=== PATIENT | male | born 1955 | race Two or more races ===

== ENCOUNTER 2017-11-07 13:31 | Observation (INO) | payer OTHER ==
[2017-11-07] MEDS ORDERED: SODIUM CHLORIDE 1,000 ML IV STA (14:09)
[2017-11-07 14:19] LABS: BASO % 0.2 % (0-2.0); EOS % 0.1 % (0-4.5); HEMATOCRIT 41.3 % (35.4-49); HEMOGLOBIN 14.1 GM/dL (11.7-16.9); LYMPH % 14.2 % (8-40); MCH 29.2 pg (25.7-33.7); MCHC 34.1 g/dl (32.0-35.9); MEAN CELL VOLUME 85.6 fl (80-96); MEAN PLT VOLUME 8.6 fl (7.5-11.1); MONO % 4.6 % (3.8-10.2); NEUT % 80.9 % (42.8-82.8); PLATELET COUNT 189 K/MM3 (134-434); RBC 4.83 M/mm3 (4.00-5.60); RDW 13.7 % (11.9-15.9); WHITE BLOOD COUNT 6.5 K/mm3 (4.0-10.0)
--- NOTE | 2017-11-07 14:29 | PDOC ---
History of Present Illness - General Chief Complaint: Chest Pain Stated Complaint: CHEST PAIN Time Seen by Provider: 11/07/17 13:46 History Source: Patient Exam Limitations: No Limitations - History of Present Illness Initial Comments: 11/07/17 14:24 Patient is a 62M with no significant medical history here today complaining of chest pain for the past two days. He describes the pain as a pressure under his sternum that improves with rest and worsens with activity. He denies history of blood clots, recent travel, recent hospitalization/surgery, and leg swelling. He says that he's had issues intermittently for the past several weeks. Denies fevers, chills, nausea, vomiting, cough. Endorses associated shortness of breath. Patient states that he has not seen a doctor for some time, and is unsure of when the last time he saw a physician was. Past History - Past Medical History Allergies/Adverse Reactions: Allergies Allergy/AdvReac Type Severity Reaction Status Date / Time No Known Allergies Allergy Verified 11/07/17 13:38 Home Medications: Ambulatory Orders NK [No Known Home Medication] 11/07/17 - Suicide/Smoking/Psychosocial Hx Smoking History: Never smoked Review of Systems - Review of Systems Comments:: 11/07/17 14:28 GENERAL/CONSTITUTIONAL: No fever or chills. No weakness. HEAD, EYES, EARS, NOSE AND THROAT: No change in vision. No sore throat. CARDIOVASCULAR: Positive for chest pain and shortness of breath RESPIRATORY: No cough, wheezing, or hemoptysis. GASTROINTESTINAL: No nausea, vomiting, diarrhea or constipation. GENITOURINARY: No dysuria, frequency, or change in urination. MUSCULOSKELETAL: No joint or muscle swelling or pain. No neck or back pain. SKIN: No rash NEUROLOGIC: No headache, vertigo, loss of consciousness, or change in strength/ sensation. ENDOCRINE: No increased thirst. No abnormal weight change HEMATOLOGIC/LYMPHATIC: No anemia, easy bleeding, or history of blood clots. ALLERGIC/IMMUNOLOGIC: No hives or skin allergy. *Physical Exam - Vital Signs Last Vital Signs Temp Pulse Resp BP Pulse Ox 98.9 F 126 H 17 136/81 99 11/07/17 13:38 11/07/17 13:38 11/07/17 13:38 11/07/17 13:38 11/07/17 13:38 - Physical Exam Comments: 11/07/17 14:29 GENERAL: Awake, alert, and fully oriented, in no acute distress HEAD: No signs of trauma, normocephalic, atraumatic EYES: PERRLA, EOMI, sclera anicteric, conjunctiva clear ENT: Auricles normal inspection, hearing grossly normal, nares patent, oropharynx clear without exudates. Moist mucosa NECK: Normal ROM, supple, no lymphadenopathy, JVD, or masses LUNGS: No distress, speaks full sentences, clear to auscultation bilaterally HEART: Regular, tachycardic, normal S1 and S2, no murmurs, rubs or gallops, peripheral pulses normal and equal bilaterally. ABDOMEN: Soft, nontender, normoactive bowel sounds. No guarding, no rebound. No masses EXTREMITIES: Normal inspection, Normal range of motion, no edema. No clubbing or cyanosis. NEUROLOGICAL: Cranial nerves II through XII grossly intact. Normal speech, normal gait, no focal sensorimotor deficits SKIN: Warm, Dry, normal turgor, no rashes or lesions noted. Heart Score/ECG Review - History History: Moderately suspicious - Electrocardiogram EKG: Normal - Age Age: >/= 65 - Risk Factors Based on the list above the patient has:: No risk factors known - Troponin Troponin: </= normal limit - Score Heart Score - Total: 3 ED Treatment Course - LABORATORY CBC & Chemistry Diagram: 11/07/17 14:10 11/07/17 14:09 - RADIOLOGY Radiology Studies Ordered: Category Date Time Status CHEST X-RAY PORTABLE* [RAD] Stat Radiology 11/07/17 14:09 Ordered Medical Decision Making - Medical Decision Making 11/07/17 14:29 Patient is a 62M with no significant medical history here today complaining of chest pain. Vital signs notable for tachycardia. No risk factors, but no physician contact for at least several years. DDx includes, but is not limited to: ACS, PE, arrhythmia. Low risk Well's of 1.5. Will evaluate with cbc, cmp, pt /inr, trop, d-dimer. Will at least two trop, possibly admit. Will treat with 1L NS. 11/07/17 15:43 Laboratory Tests 11/07/17 11/07/17 11/07/17 14:09 14:10 14:10 WBC 6.5 Hgb 14.1 Plt Count 189 D-Dimer 319 Troponin I < 0.02 CBC normal. D-dimer negative, Trop undetectable. CXR shows no acute cardiopulmonary process. HR 90 after 1L fluid bolus. Will obs to tele, cardiology consulted per Dr Pritchard, who also accepts patient to tele obs. *DC/Admit/Observation/Transfer Diagnosis at time of Disposition: Chest pain - Discharge Dispostion Condition at time of disposition: Stable Admit: Yes - Referrals - Patient Instructions - Post Discharge Activity
[2017-11-07 14:35] LABS: INR 0.99 (0.82-1.09); PROTHROMBIN TIME (PATIENT) 11.2 SEC (9.7-13.0)
[2017-11-07 14:49] LABS: ALBUMIN 4.5 g/dl (3.4-5.0); ANION GAP 5 (8-16); BLOOD UREA NITROGEN 11 mg/dL (7-18); CALCIUM 9.1 mg/dL (8.5-10.1); CHLORIDE 103 mmol/L (98-107); CO2 30 mmol/L (21-32); CREATININE 1.1 mg/dL (0.7-1.3); GLUCOSE,RANDOM 152 mg/dL (74-106); POTASSIUM 3.6 mmol/L (3.5-5.1); SGOT/AST 21 U/L (15-37); SGPT/ALT 25 U/L (12-78); SODIUM 138 mmol/L (136-145)
[2017-11-07 14:54] LABS: ALK PHOS 58 U/L (45-117); BILIRUBIN,TOTAL 0.5 mg/dL (0.2-1.0)
--- NOTE | 2017-11-07 14:59 | PDOC ---
Attending Attestation - Resident Resident Name: Darin Olivas - ED Attending Attestation I have performed the following: I have examined & evaluated the patient, The case was reviewed & discussed with the resident, I agree w/resident's findings & plan - HPI HPI: 11/07/17 14:54 62-year-old male with no severe past medical history but lost to follow-up without PCP care resents with several weeks of intermittent palpitations/chest pressure. No cough, no fevers or chills, no recent weight loss or PE risk factors. No history of smoking or drug use, no alcohol use. Has maintained his baseline weight, no night sweats or fevers or chills. - Physicial Exam PE: 11/07/17 14:56 Tachycardia noted, even at rest in stretcher heart rate is about 110 Thin, no acute distress, speaking full sentences Heart is regular tachycardia, lungs are clear, abdomen benign, no edema or calf tenderness No notable lymphadenopathy - Medical Decision Making 11/07/17 14:57 Patient seen and evaluated with the resident. I agree with the overall evaluation, assessment, and management with the following summary of visit: 62-year-old male with no baseline medical follow-up presents with intermittent palpitations/chest pressure the last few weeks, somewhat exertional and now notably tachycardic in the emergency department. Differential is broad, question metabolic such as electrolyte abnormality versus anemia versus malignancy, question anginal equivalent, rule out PE given the persistent tachycardia, question endocrine. Labs including d-dimer and TSH EKG, chest x-ray IV fluids Likely admission for further cardiac monitoring and evaluation Heart Score/ECG Review #1 ECG reviewed & interpreted by me at: 13:39 General ECG Interpretation: Sinus Rhythm (tachy at 126), Normal Intervals (qtc 431), No acute ischemic changes (tall T wave V3V4)
--- NOTE | 2017-11-07 18:18 | CON.CARD ---
Consult - History of Present Illness History of Present Illness: 62-year-old male with no severe past medical history but lost to follow-up without PCP care resents with several weeks of intermittent palpitations/chest pressure. No cough, no fevers or chills, no recent weight loss or PE risk factors. No history of smoking or drug use, no alcohol use. Has maintained his baseline weight, no night sweats or fevers or chills. - Smoking History Smoking history: Never smoked Home Medications - Allergies Allergies/Adverse Reactions: Allergies Allergy/AdvReac Type Severity Reaction Status Date / Time No Known Allergies Allergy Verified 11/07/17 13:38 - Home Medications Home Medications: Ambulatory Orders NK [No Known Home Medication] 11/07/17 Vital Signs: Vital Signs Temperature 98.9 F 11/07/17 13:38 Pulse Rate 126 H 11/07/17 13:38 Respiratory Rate 17 11/07/17 13:38 Blood Pressure 136/81 11/07/17 13:38 O2 Sat by Pulse Oximetry (%) 98 11/07/17 13:50 Constitutional: Yes: Well Nourished, No Distress, Calm Eyes: Yes: WNL, Conjunctiva Clear, EOM Intact HENT: Yes: WNL, Atraumatic, Normocephalic Neck: Yes: WNL, Supple, Trachea Midline Respiratory: Yes: WNL, Regular, CTA Bilaterally Gastrointestinal: Yes: WNL, Normal Bowel Sounds Renal/: Yes: WNL Cardiovascular: Yes: WNL, Regular Rate and Rhythm Musculoskeletal: Yes: WNL Extremities: Yes: WNL Integumentary: Yes: WNL Neurological: Yes: WNL, Alert, Oriented ...Motor Strength: WNL Psychiatric: Yes: WNL, Alert, Oriented - Other Data Labs, Other Data: CBC, BMP 11/07/17 14:10 11/07/17 14:09 INR, PTT INR 0.99 (0.82-1.09) 11/07/17 14:10 Troponin, BNP 11/07/17 14:09 Troponin I < 0.02 Troponin, BNP 11/07/17 14:09 Troponin I < 0.02 Imaging - Results Chest X-ray: Image Reviewed (wnl) EKG: Image Reviewed (s tachycardia at 126) Problem List - Problems (1) Chest pain Code(s): R07.9 - CHEST PAIN, UNSPECIFIED Assessment/Plan CP Tachycardia
--- NOTE | 2017-11-07 21:51 | HP ---
Admitting History and Physical - Primary Care Physician PCP: Rehan Pritchard - Admission History of Present Illness: 62-year-old male with no severe past medical history but lost to follow-up without PCP care resents with several weeks of intermittent palpitations/chest pressure. No cough, no fevers or chills, no recent weight loss or PE risk factors. No history of smoking or drug use, no alcohol use. Has maintained his baseline weight, no night sweats or fevers or chills. - Smoking History Smoking history: Never smoked Home Medications - Allergies Allergies/Adverse Reactions: Allergies Allergy/AdvReac Type Severity Reaction Status Date / Time No Known Allergies Allergy Verified 11/07/17 13:38 - Home Medications Home Medications: Ambulatory Orders NK [No Known Home Medication] 11/07/17 Physical Examination Vital Signs: Vital Signs Temperature 98 F 11/07/17 19:34 Pulse Rate 84 11/07/17 19:34 Respiratory Rate 16 11/07/17 19:34 Blood Pressure 140/82 11/07/17 19:34 O2 Sat by Pulse Oximetry (%) 100 11/07/17 19:34 Constitutional: Yes: No Distress HENT: Yes: Atraumatic Neck: Yes: Supple Cardiovascular: Yes: Regular Rate and Rhythm Respiratory: Yes: CTA Bilaterally Gastrointestinal: Yes: Normal Bowel Sounds Extremities: Yes: WNL Neurological: Yes: Alert, Oriented Labs: CBC, BMP 11/07/17 14:10 11/07/17 14:09 Problem List - Problems (1) Chest pain Assessment/Plan: tele monitor serial cardiac enzymes cardiology consult Code(s): R07.9 - CHEST PAIN, UNSPECIFIED Assessment/Plan Laboratory Tests 11/07/17 11/07/17 11/07/17 14:09 14:10 14:10 WBC 6.5 RBC 4.83 Hgb 14.1 Hct 41.3 MCV 85.6 MCH 29.2 MCHC 34.1 RDW 13.7 Plt Count 189 MPV 8.6 Neutrophils % 80.9 Lymphocytes % 14.2 Monocytes % 4.6 Eosinophils % 0.1 Basophils % 0.2 PT with INR 11.20 INR 0.99 D-Dimer 319 Sodium 138 Potassium 3.6 Chloride 103 Carbon Dioxide 30 Anion Gap 5 L BUN 11 Creatinine 1.1 Creat Clearance w eGFR > 60 Random Glucose 152 H Calcium 9.1 Magnesium 3.0 H Total Bilirubin 0.5 AST 21 ALT 25 Alkaline Phosphatase 58 Creatine Kinase 231 Creatine Kinase Index 1.2 CK-MB (CK-2) 2.913 Troponin I < 0.02 Total Protein 8.0 Albumin 4.5 TSH 0.44 11/07/17 15:09 WBC RBC Hgb Hct MCV MCH MCHC RDW Plt Count MPV Neutrophils % Lymphocytes % Monocytes % Eosinophils % Basophils % PT with INR INR D-Dimer Sodium Potassium Chloride Carbon Dioxide Anion Gap BUN Creatinine Creat Clearance w eGFR Random Glucose Calcium Magnesium Total Bilirubin AST ALT Alkaline Phosphatase Creatine Kinase Creatine Kinase Index CK-MB (CK-2) Troponin I Total Protein Albumin TSH Cancelled
[2017-11-08 00:18] VITALS: BMI 19.8
[2017-11-08 07:50] LABS: CHOLESTEROL 172 mg/dL (50-200); HDL CHOLESTEROL 106 mg/dL (40-60); TRIGLYCERIDES 51 mg/dL (35-160)
--- NOTE | 2017-11-08 10:08 | EKG ---
Test Reason : Blood Pressure : / mmHG Vent. Rate : 126 BPM Atrial Rate : 126 BPM P-R Int : 156 ms QRS Dur : 080 ms QT Int : 298 ms P-R-T Axes : 079 054 061 degrees QTc Int : 431 ms SINUS TACHYCARDIA POSSIBLE LEFT ATRIAL ENLARGEMENT BORDERLINE ECG NO PREVIOUS ECGS AVAILABLE Confirmed by MD Sharlene, Byron ([id number]) on 11/08/2017 10:07:59 AM Referred By: Confirmed By:Byron Su MD
--- NOTE | 2017-11-08 14:03 | PN ---
Progress Note, Physician Chief Complaint: Pt A&Ox3; sitting up at bedside; no chest pressure presently (gives hx of mild- moderate central epigastric pressure that was fiirst felt a few weeks ago, and usually occurs when he is anxious/panicky; lasts a few seconds). History of Present Illness: Patient is a 62M (b. [place]) with no significant medical history here today complaining of chest pain for the past two days. He describes the pain as a pressure under his sternum that improves with rest and worsens with activity. He denies history of blood clots, recent travel, recent hospitalization/surgery , and leg swelling. He says that he's had issues intermittently for the past several weeks. Denies fevers, chills, nausea, vomiting, cough. Endorses associated shortness of breath. Patient states that he has not seen a doctor for some time, and is unsure of when the last time he saw a physician was. - Current Medication List Current Medications: none - Objective Vital Signs: Vital Signs Temperature 97.9 F 11/08/17 08:37 Pulse Rate 85 11/08/17 08:37 Respiratory Rate 18 11/08/17 08:37 Blood Pressure 128/83 11/08/17 08:37 O2 Sat by Pulse Oximetry (%) 100 11/08/17 08:00 Constitutional: Yes: Calm Eyes: Yes: WNL HENT: Yes: WNL Neck: Yes: WNL Cardiovascular: Yes: WNL, S1, S2 Respiratory: Yes: WNL Gastrointestinal: Yes: WNL ...Rectal Exam: Yes: Deferred Genitourinary: No: Anuria Breast(s): Yes: WNL, Gynecomastia Extremities: Yes: WNL Edema: No Peripheral Pulses WNL: Yes Integumentary: Yes: WNL Neurological: Yes: WNL ...Motor Strength: WNL Psychiatric: Yes: WNL Labs: CBC, BMP 11/07/17 14:10 11/07/17 14:09 INR, PTT INR 0.99 (0.82-1.09) 11/07/17 14:10 Abnormal Lab Results 11/07/17 11/08/17 14:09 07:10 Anion Gap 5 L Random Glucose 152 H Magnesium 3.0 H HDL Cholesterol 106 H - ....Imaging Ultrasound: Report Reviewed (ECHO: normal LVEF) Other: Image Reviewed (telemetry: NSR; periods of sinus tachycardia) Problem List - Problems (1) Atypical chest pain Assessment/Plan: TNI < 0.02 x 2. EKG: no acute STT changes. ECHO: normal LVEF. CHest discomfort began a few weeks ago; usually elicited by anxiety/panic; epigastric, lasting seconds. No family hx CAD. On no medications. TSH WNL. Telemetry: P wave in lead II varies from negative to positive during pt's walk in the hallway. Plan: stress treadmill MIBI. Code(s): R07.89 - OTHER CHEST PAIN (2) Severe anxiety with panic Code(s): F41.0 - PANIC DISORDER [EPISODIC PAROXYSMAL ANXIETY] (3) Sinus tachycardia Code(s): R00.0 - TACHYCARDIA, UNSPECIFIED (4) Hyperglycemia Assessment/Plan: fasting glucose. HGBA1c. Code(s): R73.9 - HYPERGLYCEMIA, UNSPECIFIED
--- NOTE | 2017-11-08 15:22 | DS ---
Physical Examination Vital Signs: Vital Signs Temperature 97.9 F 11/08/17 08:37 Pulse Rate 85 11/08/17 08:37 Respiratory Rate 18 11/08/17 08:37 Blood Pressure 128/83 11/08/17 08:37 O2 Sat by Pulse Oximetry (%) 100 11/08/17 08:00 Constitutional: Yes: No Distress HENT: Yes: Atraumatic Neck: Yes: Supple Cardiovascular: Yes: Regular Rate and Rhythm Respiratory: Yes: CTA Bilaterally Gastrointestinal: Yes: Normal Bowel Sounds Extremities: Yes: WNL Neurological: Yes: Alert, Oriented Labs: CBC, BMP 11/07/17 14:10 11/07/17 14:09 Discharge Summary Reason For Visit: CHEST PAIN Current Active Problems Atypical chest pain (Acute) Chest pain (Acute) Hyperglycemia (Acute) Severe anxiety with panic (Acute) Sinus tachycardia (Acute) Condition: Stable - Instructions Referrals: Boom Pyle MD [Staff Physician] - Rehan Pritchard MD [Staff Physician] - - Home Medications Comprehensive Discharge Medication List: Ambulatory Orders NK [No Known Home Medication] 11/07/17 dc home fu cardio as out pt
--- NOTE | 2017-11-08 18:46 | PN ---
Progress Note, Physician History of Present Illness: doing well - Objective Vital Signs: Vital Signs Temperature 99 F 11/08/17 15:00 Pulse Rate 75 11/08/17 15:00 Respiratory Rate 18 11/08/17 15:00 Blood Pressure 117/70 11/08/17 15:00 O2 Sat by Pulse Oximetry (%) 100 11/08/17 08:00 Constitutional: Yes: No Distress HENT: Yes: Atraumatic Neck: Yes: Supple Cardiovascular: Yes: Regular Rate and Rhythm Respiratory: Yes: CTA Bilaterally Extremities: Yes: WNL Edema: No Peripheral Pulses WNL: Yes Neurological: Yes: Alert, Oriented Labs: CBC, BMP 11/07/17 14:10 11/07/17 14:09 INR, PTT INR 0.99 (0.82-1.09) 11/07/17 14:10 Problem List - Problems (1) Chest pain Assessment/Plan: tele monitor serial cardiac enzymes...negative for stress test in am Code(s): R07.9 - CHEST PAIN, UNSPECIFIED
--- NOTE | 2017-11-09 11:34 | PN ---
Progress Note, Physician History of Present Illness: 62-year-old male with no severe past medical history but lost to follow-up without PCP care resents with several weeks of intermittent palpitations/chest pressure. No cough, no fevers or chills, no recent weight loss or PE risk factors. No history of smoking or drug use, no alcohol use. Has maintained his baseline weight, no night sweats or fevers or chills. - Objective Vital Signs: Vital Signs Temperature 98 F 11/09/17 06:27 Pulse Rate 78 11/09/17 06:27 Respiratory Rate 18 11/09/17 06:27 Blood Pressure 115/68 11/09/17 06:27 O2 Sat by Pulse Oximetry (%) 100 11/09/17 00:00 Eyes: Yes: WNL, Conjunctiva Clear, EOM Intact HENT: Yes: WNL, Atraumatic, Normocephalic Neck: Yes: WNL, Supple, Trachea Midline Cardiovascular: Yes: WNL, Regular Rate and Rhythm Respiratory: Yes: WNL, Regular, CTA Bilaterally Gastrointestinal: Yes: WNL, Normal Bowel Sounds Genitourinary: Yes: WNL Musculoskeletal: Yes: WNL Extremities: Yes: WNL Edema: No Integumentary: Yes: WNL Neurological: Yes: WNL, Alert, Oriented ...Motor Strength: WNL Psychiatric: Yes: WNL Labs: CBC, BMP 11/07/17 14:10 11/07/17 14:09 INR, PTT INR 0.99 (0.82-1.09) 11/07/17 14:10 Problem List - Problems (1) Chest pain Code(s): R07.9 - CHEST PAIN, UNSPECIFIED Assessment/Plan - Problems (1) Atypical chest pain Assessment/Plan: TNI < 0.02 x 2. EKG: no acute STT changes. ECHO: normal LVEF. CHest discomfort began a few weeks ago; usually elicited by anxiety/panic; epigastric, lasting seconds. No family hx CAD. On no medications. TSH WNL. Telemetry: P wave in lead II varies from negative to positive during pt's walk in the hallway. Plan: stress treadmill MIBI. Code(s): R07.89 - OTHER CHEST PAIN (2) Severe anxiety with panic Code(s): F41.0 - PANIC DISORDER [EPISODIC PAROXYSMAL ANXIETY] (3) Sinus tachycardia Code(s): R00.0 - TACHYCARDIA, UNSPECIFIED (4) Hyperglycemia Assessment/Plan: fasting glucose. HGBA1c. Code(s): R73.9 - HYPERGLYCEMIA, UNSPECIFIED
--- NOTE | 2017-11-09 17:46 | PN ---
Progress Note, Physician - Objective Vital Signs: Vital Signs Temperature 98.1 F 11/09/17 15:58 Pulse Rate 88 11/09/17 15:58 Respiratory Rate 18 11/09/17 15:58 Blood Pressure 99/73 11/09/17 15:58 O2 Sat by Pulse Oximetry (%) 100 11/09/17 15:36 Constitutional: Yes: No Distress HENT: Yes: Atraumatic Neck: Yes: Supple Cardiovascular: Yes: Regular Rate and Rhythm Respiratory: Yes: CTA Bilaterally Gastrointestinal: Yes: Normal Bowel Sounds Extremities: Yes: WNL Neurological: Yes: Alert, Oriented Labs: CBC, BMP 11/07/17 14:10 11/07/17 14:09 INR, PTT INR 0.99 (0.82-1.09) 11/07/17 14:10 Problem List - Problems (1) Chest pain Assessment/Plan: tele monitor serial cardiac enzymes...negative stress test done report seen for cardiac cath, transfer to tertiary care Code(s): R07.9 - CHEST PAIN, UNSPECIFIED
--- NOTE | 2017-11-10 10:29 | PN ---
Progress Note, Physician History of Present Illness: Patient is a 62M (b. [place]) with no significant medical history here today complaining of chest pain for the past two days. He describes the pain as a pressure under his sternum that improves with rest and worsens with activity. He denies history of blood clots, recent travel, recent hospitalization/surgery , and leg swelling. He says that he's had issues intermittently for the past several weeks. Denies fevers, chills, nausea, vomiting, cough. Endorses associated shortness of breath. Patient states that he has not seen a doctor for some time, and is unsure of when the last time he saw a physician was. - Objective Vital Signs: Vital Signs Temperature 97.9 F 11/10/17 05:00 Pulse Rate 79 11/10/17 05:00 Respiratory Rate 18 11/10/17 05:00 Blood Pressure 124/81 11/10/17 05:00 O2 Sat by Pulse Oximetry (%) 96 11/10/17 05:00 Labs: CBC, BMP 11/07/17 14:10 11/07/17 14:09 INR, PTT INR 0.99 (0.82-1.09) 11/07/17 14:10 Problem List - Problems (1) Atypical chest pain Assessment/Plan: TNI < 0.02 x 2. EKG: no acute STT changes. ECHO: normal LVEF. CHest discomfort began a few weeks ago; usually elicited by anxiety/panic; epigastric, lasting seconds. No family hx CAD. On no medications. TSH WNL. Telemetry: P wave in lead II varies from negative to positive during pt's walk in the hallway. Plan: stress treadmill MIBI. Code(s): R07.89 - OTHER CHEST PAIN (2) Severe anxiety with panic Code(s): F41.0 - PANIC DISORDER [EPISODIC PAROXYSMAL ANXIETY] (3) Sinus tachycardia Code(s): R00.0 - TACHYCARDIA, UNSPECIFIED (4) Hyperglycemia Assessment/Plan: fasting glucose. HGBA1c. Code(s): R73.9 - HYPERGLYCEMIA, UNSPECIFIED
[2017-11-10 10:47] VITALS: BP 122/69; PULSE 100; TEMP 98
[2017-11-10] MEDS ORDERED: ASPIRIN 325 MG TABLET PO ONE ×2 (11:07→11:30)
[2017-11-10] MEDS ORDERED: CLOPIDOGREL BISULFATE 300 MG TABLET PO ONE ×2 (11:08→11:30)
--- NOTE | 2017-11-10 14:18 | EKG ---
Test Reason : Blood Pressure : / mmHG Vent. Rate : 082 BPM Atrial Rate : 082 BPM P-R Int : 150 ms QRS Dur : 082 ms QT Int : 376 ms P-R-T Axes : 079 063 070 degrees QTc Int : 439 ms NORMAL SINUS RHYTHM NORMAL ECG WHEN COMPARED WITH ECG OF 07-NOV-2017 13:39, VENT. RATE HAS DECREASED BY 44 BPM Confirmed by SILVESTRE ENCINAS MD ([id number]) on 11/10/2017 2:18:17 PM Referred By: SHANTELL BO Confirmed By:SILVESTRE ENCINAS MD
--- NOTE | 2017-11-10 16:44 | DS ---
Physical Examination Vital Signs: Vital Signs Temperature 98 F 11/10/17 10:00 Pulse Rate 100 H 11/10/17 10:00 Respiratory Rate 18 11/10/17 10:00 Blood Pressure 122/69 11/10/17 10:00 O2 Sat by Pulse Oximetry (%) 98 11/10/17 10:00 Constitutional: Yes: No Distress HENT: Yes: Atraumatic Neck: Yes: Supple Cardiovascular: Yes: Regular Rate and Rhythm Respiratory: Yes: CTA Bilaterally Gastrointestinal: Yes: Normal Bowel Sounds Extremities: Yes: WNL Peripheral Pulses WNL: Yes Neurological: Yes: Alert, Oriented Labs: CBC, BMP 11/07/17 14:10 11/07/17 14:09 Discharge Summary Reason For Visit: CHEST PAIN Condition: Stable - Instructions Referrals: Rehan Pritchard MD [Staff Physician] - Boom Pyle MD [Staff Physician] - Disposition: TRANSFER ACUTE CARE/OTHER HOSP - Home Medications Comprehensive Discharge Medication List: Ambulatory Orders NK [No Known Home Medication] 11/07/17 dc to tertiary care
== END 2017-11-10 13:41 | disposition short-term general hospital (02) ==
LOC: JER 13:31 → JERBED 15:45 → J4W 11-08 00:01
PROVIDERS: ADMIT Internal Medicine; ATTEND Internal Medicine
PROC: 3E0337Z Introduction of Electrolytic and Water Balance Substance into Peripheral Vein, Percutaneous Approach (ICD-10-PCS; principal; 2017-11-07)
DX: R07.89 Other chest pain (principal); R00.0 Tachycardia, unspecified; F41.0 Panic disorder [episodic paroxysmal anxiety]; R73.9 Hyperglycemia, unspecified
CPT/HCPCS: 36415; 71045-TC-FY; 78452-TC; 80053; 80061; 82550; 82553; 83036; 83721; 83735; 84443; 84484; 85025; 85379; 85610; 93005; 93010; 93017; 93306-TC; 99285-25; A9502; G0378; J7030

== ENCOUNTER 2024-02-02 23:23 | Emergency (ER) | payer OTHER ==
[2024-02-02 23:29] VITALS: BP 140/74; PULSE 106; RESP 18; TEMP 98.6; BMI 20.2
[2024-02-03] MEDS ORDERED: ACETAMINOPHEN 500 MG TABLET (FP) ONE
[2024-02-03] MEDS ORDERED: PHENAZOPYRIDINE HCL 100 MG TABLET (FP) ONE
[2024-02-03] MEDS: ACETAMINOPHEN 500 MG TABLET (FP) PO ONE (00:01)
[2024-02-03] MEDS: LACTATED RINGERS SOLUTION 1000 ML INFUS.BAG IV ONE (00:01)
[2024-02-03] MEDS: PHENAZOPYRIDINE HCL 100 MG TABLET (FP) PO ONE (00:01)
[2024-02-03 00:08] LABS: BASO % 0.2 % (0-2.0); EOS % 0.4 % (0-4.5); HEMATOCRIT 36.2 % (35.4-49); HEMOGLOBIN 12.2 GM/dL (11.7-16.9); LYMPH % 8.6 % (8-40); MCH 28.8 pg (25.7-33.7); MCHC 33.7 g/dl (32.0-35.9); MEAN CELL VOLUME 85.5 fl (80-96); MEAN PLT VOLUME 8.2 fl (7.5-11.1); MONO % 5.3 % (3.8-10.2); NEUT % 85.5 % (42.8-82.8); PLATELET COUNT 164 10^3/uL (134-434); RBC 4.24 M/mm3 (4.00-5.60); RDW 13.5 % (11.9-15.9); WHITE BLOOD COUNT 14.1 K/mm3 (4.0-10.0)
[2024-02-03 00:18] LABS: INR 0.95 (0.83-1.09); PROTHROMBIN TIME (PATIENT) 10.9 SEC (9.7-13.0)
[2024-02-03 00:21] LABS: ACTIVATED PTT 29.6 SECONDS (25.2-36.5)
[2024-02-03 00:22] LABS: EPI CELLS 1 /uL (0-25.1); HYALINE CASTS 2 /uL (0-3.1); PH,URINE 6.5 (5.0-8.0); URINE APPEARANCE CLOUDY; URINE BACTERIA 3320 /uL (0-1359); URINE BILIRUBIN NEGATIVE (NEGATIVE); URINE COLOR RED; URINE GLUCOSE (UA) NEGATIVE (NEGATIVE); URINE KETONE NEGATIVE (NEGATIVE); URINE LEUK ESTERASE 3+ (NEGATIVE); URINE NITRITE NEGATIVE (NEGATIVE); URINE PROTEIN 2+ (NEGATIVE); URINE RBC 15629 /uL (0-23.9); URINE UROBILINOGEN 0.2 mg/dL (0.2-1.0); URINE WBC 787 /uL (0-25.8)
[2024-02-03] MEDS ORDERED: CEFTRIAXONE 1 GM/50 ML BAG ONE (00:32)
[2024-02-03 00:48] LABS: POTASSIUM 3.7 mmol/L (3.5-5.1)
[2024-02-03 00:51] LABS: ALBUMIN 4.3 g/dl (3.4-5.0)
[2024-02-03 00:56] LABS: BILIRUBIN,TOTAL 0.4 mg/dL (0.2-1); TOT PROT 7.8 g/dl (6.4-8.2)
== END 2024-02-03 02:07 | disposition home or self-care (01) ==
LOC: JER 23:23
DX: N39.0 Urinary tract infection, site not specified (principal); N30.90 Cystitis, unspecified without hematuria
CPT/HCPCS: 36415; 74176-TC; 80053; 81003; 85025; 85610; 85730; 87086; 87186; 99284-25